=== PATIENT | female | born 1950 ===

== ENCOUNTER 2022-03-30 13:51 | Outpatient (CLI) | payer MEDICARE, MEDICAID, SELFPAY | END 2022-03-30 13:52 | disposition home or self-care (01) | PROVIDERS: PCP Physician Assistant Medical; Visit Provider Family Medicine | DX: M17.12 Unilateral primary osteoarthritis, left knee (principal); M25.562 Pain in left knee | CPT/HCPCS: 64454 ==

== ENCOUNTER 2022-04-12 07:41 | Outpatient (CLI) | payer MEDICARE, MEDICAID, SELFPAY | END 2022-04-12 07:42 | disposition home or self-care (01) | PROVIDERS: PCP Physician Assistant Medical; Visit Provider Internal Medicine Gastroenterology | DX: Z53.09 Procedure and treatment not carried out because of other contraindication (principal) ==

== ENCOUNTER 2023-04-21 08:55 | Outpatient (CLI) | payer MEDICARE, MEDICAID, SELFPAY ==
[2023-04-21 09:23] LABS: Hematocrit 42.3 % (33.0-51.0); Hemoglobin* 13.6 gm/dL (12.0-16.0); Mean Corpuscular HGB Conc 32 gm/dL (32-36); Mean Corpuscular Hemoglobin 30 pg (26-34); Mean Corpuscular Volume 92 fL (80-100); Platelet Count* 259 K/uL (140-440); Red Blood Count 4.59 m/uL (4.00-5.20); White Blood Count* 9.71 K/uL (4.50-11.00)
[2023-04-21 09:24] LABS: Slide Review Reflex No
[2023-04-21 10:33] LABS: Cholesterol* 245 mg/dL (90-199)
[2023-04-21 10:34] LABS: HDL Cholesterol* 94 mg/dL (>=50); LDL Cholesterol Calculated 131 mg/dL (<100); Triglycerides* 99 mg/dL (40-149)
[2023-04-21 12:46] LABS: Albumin* 4.5 g/dL (3.3-5.0); Chloride* 110 mmol/L (96-114); Sodium* 139 mmol/L (135-149)
[2023-04-21 12:47] LABS: Potassium* 4.4 mmol/L (3.6-5.1)
[2023-04-21 12:49] LABS: Alanine Aminotransferase* 18 U/L (4-35); Alkaline Phosphatase* 60 U/L (40-150); Aspartate Amino Transferase* 21 U/L (12-35); Bilirubin Total* 0.2 mg/dL (0.1-1.5); Blood Urea Nitrogen* 16 mg/dL (7-30); Carbon Dioxide* 16 mmol/L (20-32); Creatinine* 0.9 mg/dL (0.5-1.5); Estimated Glomerular Filt Rate 67 ml/min; Total Protein* 7.3 g/dL (6.0-8.3)
[2023-04-21 12:50] LABS: Glucose* 92 mg/dL (60-115)
== END 2023-04-21 08:56 | disposition home or self-care (01) ==
PROVIDERS: PCP Physician Assistant Medical; Visit Provider Family Medicine
DX: Z00.00 Encounter for general adult medical examination without abnormal findings; I10 Essential (primary) hypertension; F41.9 Anxiety disorder, unspecified; I63.9 Cerebral infarction, unspecified
CPT/HCPCS: 80053; 80061; 84443; 85025; 85027

== ENCOUNTER 2023-05-19 09:07 | Outpatient (CLI) | payer MEDICARE, SELFPAY | END 2023-05-19 09:08 | disposition home or self-care (01) | LOC: NFLDREF 09:10 | PROVIDERS: PCP Family Medicine; Visit Provider Family Medicine | DX: I10 Essential (primary) hypertension (principal); E78.5 Hyperlipidemia, unspecified | CPT/HCPCS: 80053 ==

== ENCOUNTER 2023-09-25 13:12 | Emergency (ER) | payer MEDICARE, SELFPAY ==
[2023-09-25 13:25] VITALS: BP 167/85; PULSE 78; RESP 16; TEMP 36.7; O2SAT 97; BMI 25.8
[2023-09-25 14:19] LABS: Strep A DNA Probe* NOT DETECTED (Not Detectd)
[2023-09-25 14:22] LABS: PCR FLU A Negative PCR FLU A (Negative); PCR FLU B Negative PCR FLU B (Negative); PCR RSV Negative PCR RSV (Negative)
[2023-09-25 14:40] LABS: SARS PCR* Negative SARS-CoV-2 (Negative)
[2023-09-25 15:57] VITALS: BP 157/90; PULSE 77; RESP 18; O2SAT 97
--- NOTE | 2023-09-25 16:02 | ED_ITS ---
HPI - General Adult General Chief complaint: Sore Throat Stated complaint: Sore throat Time Seen by Provider: 09/25/23 16:02 History of Present Illness HPI narrative: Has had a sore throught for 2 days. Wants to be sure its not something contagious. Denies fever, cough, new shortness of breath (has COPD). Aches all over too. Has not taken any ibuprofen or tylenol 73-year-old woman presenting to the emergency department with concern of sore throat and left ear pain. She does smoke. Has had 2-3 days of increased left ear pain she thinks that maybe disease station to issue but would not describe herself as congested. She has taken a variety of supplements including vitamin- C and Echinacea and then also kratom. She has gargled few times with hydrogen peroxide. Has not been using her hearing aids in a while is has been obstructed with cerumen becomes apparent during exam. No fever. She is is worried that she might have COVID though. Related Data Home Medications Medication Instructions Recorded Confirmed quetiapine 50 mg tablet 50 mg PO .Bedtime 04/21/23 09/25/23 trazodone 50 mg tablet 50 mg PO .Bedtime 04/21/23 09/25/23 Previous Rx's Medication Instructions Recorded albuterol sulfate 90 mcg/actuation 2 inh inhalation Q6-8H PRN 05/19/23 aerosol inhaler shortness of breath or wheezing #8.5 grams amlodipine 5 mg tablet 5 mg PO DAILY #90 tabs 05/19/23 clopidogrel 75 mg tablet 75 mg PO DAILY #90 tabs 05/19/23 fluticasone propionate 110 1 inh inhalation BID #12 grams 05/19/23 mcg/actuation HFA aerosol inhaler ondansetron 4 mg disintegrating 4 mg PO BID PRN nausea and 05/19/23 tablet vomiting #14 tabs tiotropium bromide 18 mcg capsule 1 cap inhalation QDAY #90 05/19/23 with inhalation device (Spiriva inhalations with HandiHaler) Allergies Allergy/AdvReac Type Severity Reaction Status Date / Time No Known Drug Allergies Allergy Verified 09/25/23 13:24 Review of Systems Status of ROS: Reports: 6 or more systems reviewed and unremarkable except as noted in History and below [facility] Medical History Passive suicidal ideations ?R45.851 - Suicidal ideations (ICD-10) History of suicide attempt ?Z91.51 - Personal history of suicidal behavior (ICD-10) History of eating disorder ?Z86.59 - Personal history of other mental and behavioral disorders (ICD-10) Bipolar disorder ?F31.9 - Bipolar disorder, unspecified (ICD-10) Positive RINA (antinuclear antibody) ?R76.8 - Other specified abnormal immunological findings in serum (ICD-10) Pulmonary hypertension ?I27.20 - Pulmonary hypertension, unspecified (ICD-10) Mitral valve prolapse (2016) ?I34.1 - Nonrheumatic mitral (valve) prolapse (ICD-10) History of alcoholism ?F10.21 - Alcohol dependence, in remission (ICD-10) Lumbar back pain ?M54.50 - Low back pain, unspecified (ICD-10) Bipolar 2 disorder ?F31.81 - Bipolar II disorder (ICD-10) Cigarette smoker ?F17.210 - Nicotine dependence, cigarettes, uncomplicated (ICD-10) Anxiety ?F41.9 - Anxiety disorder, unspecified (ICD-10) Osteoarthritis (arthritis due to wear and tear of joints) ?M19.90 - Unspecified osteoarthritis, unspecified site (ICD-10) COPD (chronic obstructive pulmonary disease) ?J44.9 - Chronic obstructive pulmonary disease, unspecified (ICD-10) Hypertension, essential ?I10 - Essential (primary) hypertension (ICD-10) PTSD (post-traumatic stress disorder) ?F43.10 - Post-traumatic stress disorder, unspecified (ICD-10) Borderline personality disorder ?F60.3 - Borderline personality disorder (ICD-10) Pneumonia of both lower lobes (~2014) ?J18.9 - Pneumonia, unspecified organism (ICD-10) Surgical History History of knee problem ?Z87.39 - Personal history of other diseases of the musculoskeletal system and connective tissue (ICD-10) History of appendectomy (~1981) ?Z90.49 - Acquired absence of other specified parts of digestive tract (ICD- 10) History of hysterectomy (1984) ?Z90.710 - Acquired absence of both cervix and uterus (ICD-10) History of Achilles tendon repair (1982) ?Z98.890 - Other specified postprocedural states (ICD-10) History of laparoscopy (~1979) ?Z98.890 - Other specified postprocedural states (ICD-10) Family History Father Pacemaker Brother Pancreatic cancer, Onset Age: 63 Brother Lung cancer, Onset Age: 57 Sister Schizophrenia Autism Social History Narrative: 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, patient is estranged from him Smokes 15 cigarettes a day, history of 25 pack years Rare alcohol use No illegal drug use What is your current living situation?: I presently have a place to live Problems where you live: no known problems In the past 12 months, utilities in danger of being shut off: no In past 12 months, lack of transportation kept you from medical appts, meetings, work, or getting things needed for daily living: yes In the past 12 mos, have been you worried that your food would run out before you had money to buy more?: never true In the past 12 mos, the food you bought just didn't last and you didn't have money to buy more?: never true Smoking Status: Current some day smoker What tobacco products do you use: cigarettes Smoking packs per day: 0.5 Smoking cigarettes per day: 10.0 Do you use any of these nicotine containing products: None Second hand tobacco smoke exposure: No How often do you have a drink containing alcohol: never How often do you have six or more drinks on one occasion: Never AUDIT-C Alcohol total score: 0 Non-prescribed substance use: denies use Non-prescribed substance use details: edtom How often does anyone, including family, friends and others, physically hurt you : never How often does anyone, including family, friends and others, insult or talk down to you: sometimes How often does anyone, including family, friends and others, threaten you with harm: never How often does anyone, including family, friends and others, scream or curse at you: never Little interest or pleasure in doing things: nearly every day Feeling down, depressed, or hopeless: nearly every day service: No Exam Narrative: Exam Narrative: Very pleasant. There is the smell of cigarette smoke. Breathing easily. No stridor. Trachea midline. Heart is in regular rate and rhythm. Head is atraumatic. Movement of either pinna or tragus is not painful. There is not inflammation within the ear canal but small amount of cerumen in the left. TM otherwise looks unremarkable. Right TM is completely obscured by small amount of cerumen that I am able to clear with a little difficulty from the outer aspect of the canal. Quite sensitive. I do not see inflammatory changes though to the TM here. Neither TMJ is tender. Dentition looks to be in good repair. No oral swelling. Oropharynx without erythema or exudate. Nicotine stained tongue. There is hyperemia it to the vasculature of the posterior oropharynx. No induration. No cervical lymphadenopathy. Neck is supple. Const: Vital Signs, click to edit/add: Vital Signs - 24 hr 09/25/23 13:25 09/25/23 15:57 Temperature 98.0 F Pulse Rate 77 Pulse Rate [Pulse Oximeter] 78 Respiratory Rate 16 18 Blood Pressure 157/90 H Blood Pressure [Ri ght Upper Arm] 167/85 H Pulse Oximetry 97 97 Oxygen Delivery Me thod Room Air Documenting provider has reviewed patient's vital signs: yes Course Vital Signs Vital signs: Initial Vital Signs Temperature 98.0 F 09/25/23 13:25 Temperature Source Temporal Artery Scan 09/25/23 13:25 Pulse Rate 78 09/25/23 13:25 Pulse Rhythm Regular 09/25/23 13:25 Pulse Strength 3+ Normal 09/25/23 13:25 Respiratory Rate 16 09/25/23 13:25 Blood Pressure 167/85 H 09/25/23 13:25 Blood Pressure Mean 112 H 09/25/23 13:25 Blood Pressure Position Sitting 09/25/23 13:25 Pulse Oximetry 97 09/25/23 13:25 Oxygen Delivery Method Room Air 09/25/23 13:25 Vital Signs Temperature 98.0 F 09/25/23 13:25 Pulse Rate 78 09/25/23 13:25 Respiratory Rate 16 09/25/23 13:25 Blood Pressure 167/85 H 09/25/23 13:25 Pulse Oximetry 97 09/25/23 13:25 Oxygen Delivery Method Room Air 09/25/23 13:25 Temperature 98.0 F 09/25/23 13:25 Pulse Rate 77 09/25/23 15:57 Respiratory Rate 18 09/25/23 15:57 Blood Pressure 157/90 H 09/25/23 15:57 Pulse Oximetry 97 09/25/23 15:57 Oxygen Delivery Method Room Air 09/25/23 13:25 Medical Decision Making MDM Narrative Medical decision making narrative: Given generalized symptoms might represent viral process. Per concerns can also screen for strep. Would imagine that cigarette smoking would irritate this. Discussed. Will screen for COVID influenza at least given community prevalence. Does not seem to be a bacterial pharyngitis. No other indication of dysphagia. I wonder some of the medications that she is using as well including hydrogen peroxide gargle, which she says is not frequent, might be contributing to throat irritation. No asymmetry or finding significant enough to make me think that there is an abscess or hematoma. Does have a history on review of record of positive RINA. Not clear that this is flaring. Triple swab and strep is negative. See patient discharge plan Medical Records Medical records reviewed: Yes I reviewed the patient's medical records Lab Data Lab results reviewed: Yes I reviewed the patient's lab results Labs: Lab Results 09/25/23 Range/Units Unknown SARS-CoV-2 (PCR) Negative SARS-CoV-2 (Negative) Influenza Type A (PCR) Negative PCR FLU A (Negative) Influenza Type B (PCR) Negative PCR FLU B (Negative) RSV (PCR) Negative PCR RSV (Negative) Group A Strep DNA NOT DETECTED (Not Detectd) Discharge Plan Discharge Clinical Impression: Cerumen impaction, Otalgia, Pharyngitis Patient Disposition: Home, Self-Care Condition: Stable Additional Instructions: I would use caution with kratom. Avoid regular use of hydrogen peroxide gargling. For your sore throat you might consider anesthetic throat lozenges or sprays like Sucrets or Chloraseptic. The Debrox you have might be helpful to clear out the small residual cerumen in your ear canals but not really necessary at the moment. Given your persistent discomfort and the fact that you smoke (and I do know you're trying to quit), I do think it would be a good idea to have ear nose and throat have a good look to see if we might be missing something. Dr. Anderosn sees patients locally. Temporarily you might try ibuprofen or of course acetaminophen for pain. Can take naproxen as an alternative to ibuprofen. If you're feeling like your eustachian tubes need clearing, pseudoephedrine can be an effective decongestant to open up your eustachian tubes. Prescriptions: No Action quetiapine 50 mg tablet 50 mg PO .Bedtime trazodone 50 mg tablet 50 mg PO .Bedtime amlodipine 5 mg tablet 5 mg PO DAILY Qty: 90 4RF clopidogrel 75 mg tablet 75 mg PO DAILY Qty: 90 4RF fluticasone propionate 110 mcg/actuation HFA aerosol inhaler 1 inh inhalation BID Qty: 12 12RF Spiriva with HandiHaler 18 mcg capsule, w/inhalation device 1 cap inhalation QDAY Qty: 90 4RF Rx Instructions: puncture 1 cap using device; one dose = 2 inhalations albuterol sulfate 90 mcg/actuation HFA aerosol inhaler 2 inh inhalation Q6-8H PRN (Reason: shortness of breath or wheezing) Qty: 8.5 3RF ondansetron 4 mg tablet,disintegrating 4 mg PO BID PRN (Reason: nausea and vomiting) Qty: 14 0RF Follow Up/Referrals: Beth Lancaster MD [Primary Care Provider] - Stand Alone Forms: [facility] Info Instructions Procedures Ear Wax Removal Right Ear: Cerumenolytic Used: other Results: Re-examined: some cerumen remains (Very small amount) TM Examination: TM(s) intact, normal appearance Ear Canal Exam: other (Irritated, mildly inflamed) Patient Tolerated Procedure: other (Quite sensitive. Would have considered a little more removal. Got vast majority) Complications: no problems Technique: ear canal curetted
== END 2023-09-25 16:47 | disposition home or self-care (01) ==
PROVIDERS: Emergency Provider Family Medicine; PCP Family Medicine
DX: J02.9 Acute pharyngitis, unspecified (principal); H92.02 Otalgia, left ear; H61.21 Impacted cerumen, right ear
CPT/HCPCS: 87631; 87651; 99283; 99284

== ENCOUNTER 2024-01-04 08:54 | Emergency (ER) | payer MEDICARE, SELFPAY ==
[2024-01-04 09:04] VITALS: BP 140/92; PULSE 93; RESP 20; TEMP 36.2; O2SAT 98; BMI 25.0
--- NOTE | 2024-01-04 09:36 | ED_ITS ---
HPI - General Adult General Chief complaint: Unspecified Complaint, Adult Stated complaint: anxiety/insomnia Time Seen by Provider: 01/04/24 09:09 History of Present Illness HPI narrative: Patient is a very pleasant 73-year-old black female who has a complicated medical history including bipolar disorder, depression, posttraumatic stress disorder, borderline personality disorder. The patient reports over last couple days she has not slept much. She has been out of her trazodone and Seroquel for the last couple of weeks. She also is out of her albuterol inhaler. She does have Plavix that is an adequate supply. Other meds are an adequate supply at home. She transferred care to Dr. Irene recently and for some reason appointment was canceled today. She really feels she needs her medications restarted. She comes to the ED. She denies chest pain, breathing problem, fevers, chills or neurologic complaint. Related Data Home Medications Medication Instructions Recorded Confirmed quetiapine 50 mg tablet 50 mg PO .Bedtime 04/21/23 01/04/24 trazodone 50 mg tablet 50 mg PO .Bedtime 04/21/23 01/04/24 Previous Rx's Medication Instructions Recorded albuterol sulfate 90 mcg/actuation 2 inh inhalation Q6-8H PRN 05/19/23 aerosol inhaler shortness of breath or wheezing #8.5 grams amlodipine 5 mg tablet 5 mg PO DAILY #90 tabs 05/19/23 clopidogrel 75 mg tablet 75 mg PO DAILY #90 tabs 05/19/23 fluticasone propionate 110 1 inh inhalation BID #12 grams 05/19/23 mcg/actuation HFA aerosol inhaler ondansetron 4 mg disintegrating 4 mg PO BID PRN nausea and 05/19/23 tablet vomiting #14 tabs tiotropium bromide 18 mcg capsule 1 cap inhalation QDAY #90 05/19/23 with inhalation device (Spiriva inhalations with HandiHaler) albuterol sulfate 90 mcg/actuation 2 inh inhalation Q6H PRN #1 ea 01/04/24 breath activated powder inhaler,sensor quetiapine 50 mg tablet (Seroquel) 50 mg PO QHS #30 tabs 01/04/24 trazodone 50 mg tablet 50 mg PO QHS #30 tabs 01/04/24 Allergies Allergy/AdvReac Type Severity Reaction Status Date / Time No Known Drug Allergies Allergy Verified 09/25/23 13:24 Review of Systems Status of ROS: Reports: 6 or more systems reviewed and unremarkable except as noted in History and below [facility] History Passive suicidal ideations ?R45.851 - Suicidal ideations (ICD-10) History of suicide attempt ?Z91.51 - Personal history of suicidal behavior (ICD-10) History of eating disorder ?Z86.59 - Personal history of other mental and behavioral disorders (ICD-10) Bipolar disorder ?F31.9 - Bipolar disorder, unspecified (ICD-10) Positive RINA (antinuclear antibody) ?R76.8 - Other specified abnormal immunological findings in serum (ICD-10) Pulmonary hypertension ?I27.20 - Pulmonary hypertension, unspecified (ICD-10) Mitral valve prolapse (2015) ?I34.1 - Nonrheumatic mitral (valve) prolapse (ICD-10) History of alcoholism ?F10.21 - Alcohol dependence, in remission (ICD-10) Lumbar back pain ?M54.50 - Low back pain, unspecified (ICD-10) Bipolar 2 disorder ?F31.81 - Bipolar II disorder (ICD-10) Cigarette smoker ?F17.210 - Nicotine dependence, cigarettes, uncomplicated (ICD-10) Anxiety ?F41.9 - Anxiety disorder, unspecified (ICD-10) Osteoarthritis (arthritis due to wear and tear of joints) ?M19.90 - Unspecified osteoarthritis, unspecified site (ICD-10) COPD (chronic obstructive pulmonary disease) ?J44.9 - Chronic obstructive pulmonary disease, unspecified (ICD-10) Hypertension, essential ?I10 - Essential (primary) hypertension (ICD-10) PTSD (post-traumatic stress disorder) ?F43.10 - Post-traumatic stress disorder, unspecified (ICD-10) Borderline personality disorder ?F60.3 - Borderline personality disorder (ICD-10) Pneumonia of both lower lobes (~2014) ?J18.9 - Pneumonia, unspecified organism (ICD-10) Surgical History History of knee problem ?Z87.39 - Personal history of other diseases of the musculoskeletal system and connective tissue (ICD-10) History of appendectomy (~1981) ?Z90.49 - Acquired absence of other specified parts of digestive tract (ICD- 10) History of hysterectomy (1984) ?Z90.710 - Acquired absence of both cervix and uterus (ICD-10) History of Achilles tendon repair (1982) ?Z98.890 - Other specified postprocedural states (ICD-10) History of laparoscopy (~1979) ?Z98.890 - Other specified postprocedural states (ICD-10) Family History Father Pacemaker Brother Pancreatic cancer, Onset Age: 63 Brother Lung cancer, Onset Age: 57 Sister Schizophrenia Autism Social History Narrative: 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, 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, 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 [facility], patient is estranged from him Smokes 15 cigarettes a day, history of 25 pack years Rare alcohol use No illegal drug use What is your current living situation?: I presently have a place to live Problems where you live: no known problems In the past 12 months, utilities in danger of being shut off: no In past 12 months, lack of transportation kept you from medical appts, meetings, work, or getting things needed for daily living: yes In the past 12 mos, have been you worried that your food would run out before you had money to buy more?: never true In the past 12 mos, the food you bought just didn't last and you didn't have money to buy more?: never true Smoking Status: Current some day smoker What tobacco products do you use: cigarettes Smoking packs per day: 0.5 Smoking cigarettes per day: 10.0 Do you use any of these nicotine containing products: None Second hand tobacco smoke exposure: No How often do you have a drink containing alcohol: never How often do you have six or more drinks on one occasion: Never AUDIT-C Alcohol total score: 0 Non-prescribed substance use: denies use 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 How often does anyone, including family, friends and others, physically hurt you : never How often does anyone, including family, friends and others, insult or talk down to you: sometimes How often does anyone, including family, friends and others, threaten you with harm: never How often does anyone, including family, friends and others, scream or curse at you: never Little interest or pleasure in doing things: nearly every day Feeling down, depressed, or hopeless: nearly every day service: No Exam Narrative: Exam Narrative: Objective: Patient's vital signs look largely unremarkable and within normal limits She is alert oriented no distress, very cognitively intact and sharp thinking Neurologically moves all 4s, no complaint of any discomfort or pain. No complaint of injury. Const: Vital Signs, click to edit/add: Vital Signs - 24 hr 01/04/24 09:04 Temperature 97.2 F L Pulse Rate [Pulse Oximeter] 93 Respiratory Rate 20 Blood Pressure [Ri ght Upper Arm] 140/92 H Pulse Oximetry 98 Oxygen Delivery Me thod Room Air Course Vital Signs Vital signs: Initial Vital Signs Temperature 97.2 F L 01/04/24 09:04 Temperature Source Temporal Artery Scan 01/04/24 09:04 Pulse Rate 93 01/04/24 09:04 Respiratory Rate 20 01/04/24 09:04 Blood Pressure 140/92 H 01/04/24 09:04 Blood Pressure Mean 108 H 01/04/24 09:04 Blood Pressure Position Supine 01/04/24 09:04 Pulse Oximetry 98 01/04/24 09:04 Oxygen Delivery Method Room Air 01/04/24 09:04 Vital Signs Temperature 97.2 F L 01/04/24 09:04 Pulse Rate 93 01/04/24 09:04 Respiratory Rate 20 01/04/24 09:04 Blood Pressure 140/92 H 01/04/24 09:04 Pulse Oximetry 98 01/04/24 09:04 Oxygen Delivery Method Room Air 01/04/24 09:04 Temperature 97.2 F L 01/04/24 09:04 Pulse Rate 93 01/04/24 09:04 Respiratory Rate 20 01/04/24 09:04 Blood Pressure 140/92 H 01/04/24 09:04 Pulse Oximetry 98 01/04/24 09:04 Oxygen Delivery Method Room Air 01/04/24 09:04 Medications Administered Medications: Discontinued Medications Generic Name Dose Route Start Last Admin Trade Name Freq PRN Reason Stop Dose Admin Quetiapine Fumarate 50 mg 01/04/24 09:30 01/04/24 09:46 Quetiapine 25 Mg Tablet PO 01/04/24 09:31 50 mg ONCE ONE Administration Medical Decision Making MDM Narrative Medical decision making narrative: 73-year-old female with multiple medical issues who really needs to is restarted on her medications, she has been troubled with bipolar disorder and she also has significant insomnia the last couple of days. She feels if she starts under circ: Trazodone again show be in good condition. I think it be reasonable to give her the Seroquel now so she can rest today she can start her usual medications tonight I would just do the trazodone tonight and then start Seroquel and trazodone as she had been doing tomorrow. She can continue her other home medications. Will refill her albuterol inhaler as well. Given the difficulty people are having a getting in promptly to appointments will give her a short supply of both of these medications but enough to get her to her next appointment. She was very appreciative of this and agrees to follow up as needed. She does have a ride home today. Discharge Plan Discharge Clinical Impression: Bipolar 2 disorder, PTSD (post-traumatic stress disorder), Anxiety Patient Disposition: Home w/ Parent or Adult Condition: Stable Additional Instructions: We refilled your Seroquel and trazodone, as well as your inhaler. He can pick t hese up at the pharmacy. Recommend make it a follow-up appoint with Dr. Her Pang at your convenience. Return to the emergency department as needed Activity Level: Light activity Discharge Diet: Regular Prescriptions: New quetiapine [Seroquel] 50 mg tablet 50 mg PO QHS Qty: 30 3RF trazodone 50 mg tablet 50 mg PO QHS Qty: 30 3RF albuterol sulfate 90 mcg/actuation aero powdr breath act w/sensor 2 inh inhalation Q6H PRNQty: 1 0RF No Action quetiapine 50 mg tablet 50 mg PO .Bedtime trazodone 50 mg tablet 50 mg PO .Bedtime amlodipine 5 mg tablet 5 mg PO DAILY Qty: 90 4RF clopidogrel 75 mg tablet 75 mg PO DAILY Qty: 90 4RF fluticasone propionate 110 mcg/actuation HFA aerosol inhaler 1 inh inhalation BID Qty: 12 12RF Spiriva with HandiHaler 18 mcg capsule, w/inhalation device 1 cap inhalation QDAY Qty: 90 4RF Rx Instructions: puncture 1 cap using device; one dose = 2 inhalations albuterol sulfate 90 mcg/actuation HFA aerosol inhaler 2 inh inhalation Q6-8H PRN (Reason: shortness of breath or wheezing) Qty: 8.5 3RF ondansetron 4 mg tablet,disintegrating 4 mg PO BID PRN (Reason: nausea and vomiting) Qty: 14 0RF Follow Up/Referrals: Beth Lancaster MD [Primary Care Provider] - Stand Alone Forms: [employer] Info Instructions
[2024-01-04] MEDS: QUETIAPINE 25 MG TABLET 50 MG PO (09:46)
== END 2024-01-04 09:48 | disposition home or self-care (01) ==
LOC: ED 09:37
PROVIDERS: Emergency Provider Family Medicine; PCP Family Medicine
DX: F31.81 Bipolar II disorder (principal); F43.10 Post-traumatic stress disorder, unspecified; F41.9 Anxiety disorder, unspecified
CPT/HCPCS: 99283; 99284; A9270

== ENCOUNTER 2024-01-25 08:52 | Emergency (ER) | payer MEDICARE, SELFPAY ==
[2024-01-25 08:57] VITALS: BP 134/76; PULSE 76; RESP 18; TEMP 36.6; O2SAT 98; BMI 23.9
--- NOTE | 2024-01-25 09:16 | ED.DENTAL ---
HPI - Dental/Oral General Chief complaint: Dental/Oral/Mouth Injury/Pain Stated complaint: tooth pain Time Seen by Provider: 01/25/24 09:05 History of Present Illness HPI Narrative: This 73-year-old female comes in because of left upper dental pain that radiates to her left ear. She states that she had some pain about 2 or 3 weeks ago for few days and this resolved. It came back again a 2nd time and now the she is here for 3rd episode of this pain which is worse than the other previous episodes. She has not been to a dentist. She arrives here with normal vital signs. She also states that she has run out of her Seroquel. She just has a few tablets of trazodone left. She was seen here 21 days ago and was out of these same medicines. She did received prescription for 30 of each but states that the Seroquel she takes twice a day. She has not yet arranged an appointment with her primary physician. Apparently she had 1 3 weeks ago and it was canceled and that prompted her visit to the emergency department then. Related Data Home Medications Medication Instructions Recorded Confirmed quetiapine 50 mg tablet 50 mg PO .Bedtime 04/21/23 01/25/24 trazodone 50 mg tablet 50 mg PO .Bedtime 04/21/23 01/25/24 Previous Rx's Medication Instructions Recorded albuterol sulfate 90 mcg/actuation 2 inh inhalation Q6-8H PRN 05/19/23 aerosol inhaler shortness of breath or wheezing #8.5 grams amlodipine 5 mg tablet 5 mg PO DAILY #90 tabs 05/19/23 clopidogrel 75 mg tablet 75 mg PO DAILY #90 tabs 05/19/23 fluticasone propionate 110 1 inh inhalation BID #12 grams 05/19/23 mcg/actuation HFA aerosol inhaler ondansetron 4 mg disintegrating 4 mg PO BID PRN nausea and 05/19/23 tablet vomiting #14 tabs tiotropium bromide 18 mcg capsule 1 cap inhalation QDAY #90 05/19/23 with inhalation device (Spiriva inhalations with HandiHaler) albuterol sulfate 90 mcg/actuation 2 inh inhalation Q6H PRN #1 ea 01/04/24 breath activated powder inhaler,sensor quetiapine 50 mg tablet (Seroquel) 50 mg PO QHS #30 tabs 01/04/24 trazodone 50 mg tablet 50 mg PO QHS #30 tabs 01/04/24 ketorolac 10 mg tablet 10 mg PO TID 5 days #15 tabs 01/25/24 quetiapine 50 mg tablet (Seroquel) 50 mg PO BID #30 tabs 01/25/24 trazodone 50 mg tablet 50 mg PO QHS #15 tabs 01/25/24 Allergies Allergy/AdvReac Type Severity Reaction Status Date / Time No Known Drug Allergies Allergy Verified 09/25/23 13:24 Review of Systems Status of ROS: Reports: 10 or more systems reviewed and unremarkable except as noted in History and below Narrative: Constitutional: No fevers, no weight gain or loss. Eyes: No discharge. No vision changes. HENT: No congestion, no sore throat. Left upper row of dental pain radiating to her left ear. Cardiovascular: No chest pain, no palpitations. Respiratory: No shortness of breath, no wheezes, no cough. Gastrointestinal: No abdominal pain, no vomiting, no diarrhea. Genitourinary: No dysuria, no hematuria. Musculoskeletal: Normal range of motion. Skin: No rashes, no pruritis. Neurological: No dizziness, weakness, sensory change, speech change. Endo/Heme/Allergies: No bruising or bleeding. No polydipsia. Pysch: no suicidality, no anxiety. She reports some insomnia. All other systems reviewed and are negative. [facility] Medical History Passive suicidal ideations ?R45.851 - Suicidal ideations (ICD-10) History of suicide attempt ?Z91.51 - Personal history of suicidal behavior (ICD-10) History of eating disorder ?Z86.59 - Personal history of other mental and behavioral disorders (ICD-10) Bipolar disorder ?F31.9 - Bipolar disorder, unspecified (ICD-10) Positive RINA (antinuclear antibody) ?R76.8 - Other specified abnormal immunological findings in serum (ICD-10) Pulmonary hypertension ?I27.20 - Pulmonary hypertension, unspecified (ICD-10) Mitral valve prolapse (2016) ?I34.1 - Nonrheumatic mitral (valve) prolapse (ICD-10) History of alcoholism ?F10.21 - Alcohol dependence, in remission (ICD-10) Lumbar back pain ?M54.50 - Low back pain, unspecified (ICD-10) Bipolar 2 disorder ?F31.81 - Bipolar II disorder (ICD-10) Cigarette smoker ?F17.210 - Nicotine dependence, cigarettes, uncomplicated (ICD-10) Anxiety ?F41.9 - Anxiety disorder, unspecified (ICD-10) Osteoarthritis (arthritis due to wear and tear of joints) ?M19.90 - Unspecified osteoarthritis, unspecified site (ICD-10) COPD (chronic obstructive pulmonary disease) ?J44.9 - Chronic obstructive pulmonary disease, unspecified (ICD-10) Hypertension, essential ?I10 - Essential (primary) hypertension (ICD-10) PTSD (post-traumatic stress disorder) ?F43.10 - Post-traumatic stress disorder, unspecified (ICD-10) Borderline personality disorder ?F60.3 - Borderline personality disorder (ICD-10) Pneumonia of both lower lobes (~2014) ?J18.9 - Pneumonia, unspecified organism (ICD-10) Surgical History History of knee problem ?Z87.39 - Personal history of other diseases of the musculoskeletal system and connective tissue (ICD-10) History of appendectomy (~1981) ?Z90.49 - Acquired absence of other specified parts of digestive tract (ICD-10) History of hysterectomy (1984) ?Z90.710 - Acquired absence of both cervix and uterus (ICD-10) History of Achilles tendon repair (1982) ?Z98.890 - Other specified postprocedural states (ICD-10) History of laparoscopy (~1979) ?Z98.890 - Other specified postprocedural states (ICD-10) Family History Father Pacemaker Brother Pancreatic cancer, Onset Age: 63 Brother Lung cancer, Onset Age: 57 Sister Schizophrenia Autism Social History Narrative: 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, patient is estranged from him Smokes 15 cigarettes a day, history of 25 pack years Rare alcohol use No illegal drug use What is your current living situation?: I presently have a place to live Problems where you live: no known problems In the past 12 months, utilities in danger of being shut off: no In past 12 months, lack of transportation kept you from medical appts, meetings, work, or getting things needed for daily living: yes In the past 12 mos, have been you worried that your food would run out before you had money to buy more?: never true In the past 12 mos, the food you bought just didn't last and you didn't have money to buy more?: never true Smoking Status: Current some day smoker What tobacco products do you use: cigarettes Smoking packs per day: 0.5 Smoking cigarettes per day: 10.0 Do you use any of these nicotine containing products: None Second hand tobacco smoke exposure: No How often do you have a drink containing alcohol: never How often do you have six or more drinks on one occasion: Never AUDIT-C Alcohol total score: 0 Non-prescribed substance use: denies use Non-prescribed substance use details: kratom How often does anyone, including family, friends and others, physically hurt you: never How often does anyone, including family, friends and others, insult or talk down to you: sometimes How often does anyone, including family, friends and others, threaten you with harm: never How often does anyone, including family, friends and others, scream or curse at you: never Little interest or pleasure in doing things: nearly every day Feeling down, depressed, or hopeless: nearly every day service: No Exam Narrative: Exam Narrative: Constitutional: Well-developed, well-nourished, no acute distress. HEENT: Normocephalic, atraumatic. She has a partial plate in the left upper row of teeth. No sign of abscess or dental injury. Tympanic membrane appears normal. Neck: Normal range of motion. Nontender. Supple. Heart: Regular. No murmurs. Normal rate. Intact distal pulses. Lungs: Clear to auscultation. No chest discomfort. No wheezes, rhonchi, or rales. Abdomen: Normal bowel sounds. Nontender. No rebound tenderness. Genitalia: Deferred. Back: No midline tenderness. Normal range of motion. Extremities: Normal range of motion. No injury. Skin: Intact. No rash. Warm. No erythema or pallor. Neurologic: No altered sensation. No weakness. Alert and oriented. Psychiatric: No suicidality. No anxiety or depression. No insomnia. Nursing notes and vitals signs are reviewed. Const: Vital Signs, click to edit/add: Vital Signs - 24 hr 01/25/24 08:57 Temperature 97.9 F Pulse Rate [Pulse Oximeter] 76 Respiratory Rate 18 Blood Pressure [Ri ght Upper Arm] 134/76 Pulse Oximetry 98 Oxygen Delivery Me thod Room Air Course Vital Signs Vital signs: Initial Vital Signs Temperature 97.9 F 01/25/24 08:57 Temperature Source Temporal Artery Scan 01/25/24 08:57 Pulse Rate 76 01/25/24 08:57 Respiratory Rate 18 01/25/24 08:57 Blood Pressure 134/76 01/25/24 08:57 Blood Pressure Mean 95 01/25/24 08:57 Blood Pressure Position Supine 01/25/24 08:57 Pulse Oximetry 98 01/25/24 08:57 Oxygen Delivery Method Room Air 01/25/24 08:57 Vital Signs Temperature 97.9 F 01/25/24 08:57 Pulse Rate 76 01/25/24 08:57 Respiratory Rate 18 01/25/24 08:57 Blood Pressure 134/76 01/25/24 08:57 Pulse Oximetry 98 01/25/24 08:57 Oxygen Delivery Method Room Air 01/25/24 08:57 Temperature 97.9 F 01/25/24 08:57 Pulse Rate 76 01/25/24 08:57 Respiratory Rate 18 01/25/24 08:57 Blood Pressure 134/76 01/25/24 08:57 Pulse Oximetry 98 01/25/24 08:57 Oxygen Delivery Method Room Air 01/25/24 08:57 MDM - Dental/Oral MDM Narrative Medical decision making narrative: This patient comes in with dental pain and is encouraged to make an appointment with her dentist. I did offer a nerve block which she declined. She did receive a prescription for Toradol. I also did refill her trazodone and Seroquel and underscored the importance of having her primary physician manage these refills. Discharge Plan Discharge Clinical Impression: Pain, dental Patient Disposition: Home, Self-Care Condition: Stable Additional Instructions: Take medication as prescribed. Follow-up with dentist as soon as possible. Follow-up with primary physician for ongoing refills and management of regular medications. Prescriptions: New trazodone 50 mg tablet 50 mg PO QHS Qty: 15 2RF ketorolac 10 mg tablet 10 mg PO TID 5 Days Qty: 15 0RF quetiapine [Seroquel] 50 mg tablet 50 mg PO BID Qty: 30 2RF No Action quetiapine 50 mg tablet 50 mg PO .Bedtime trazodone 50 mg tablet 50 mg PO .Bedtime amlodipine 5 mg tablet 5 mg PO DAILY Qty: 90 4RF clopidogrel 75 mg tablet 75 mg PO DAILY Qty: 90 4RF fluticasone propionate 110 mcg/actuation HFA aerosol inhaler 1 inh inhalation BID Qty: 12 12RF Spiriva with HandiHaler 18 mcg capsule, w/inhalation device 1 cap inhalation QDAY Qty: 90 4RF Rx Instructions: puncture 1 cap using device; one dose = 2 inhalations albuterol sulfate 90 mcg/actuation HFA aerosol inhaler 2 inh inhalation Q6-8H PRN (Reason: shortness of breath or wheezing) Qty: 8.5 3RF ondansetron 4 mg tablet,disintegrating 4 mg PO BID PRN (Reason: nausea and vomiting) Qty: 14 0RF quetiapine [Seroquel] 50 mg tablet 50 mg PO QHS Qty: 30 3RF trazodone 50 mg tablet 50 mg PO QHS Qty: 30 3RF albuterol sulfate 90 mcg/actuation aero powdr breath act w/sensor 2 inh inhalation Q6H PRNQty: 1 0RF Follow Up/Referrals: Beth Lancaster MD [Primary Care Provider] - Stand Alone Forms: [facility] Info Instructions
== END 2024-01-25 09:29 | disposition home or self-care (01) ==
LOC: ED 09:26
PROVIDERS: Emergency Provider Emergency Medicine Emergency Medical Services; PCP Family Medicine
DX: K08.89 Other specified disorders of teeth and supporting structures (principal)
CPT/HCPCS: 99283; 99284

== ENCOUNTER 2024-06-18 10:57 | Outpatient (CLI) | payer MEDICARE, SELFPAY ==
--- OUTSIDE RECORDS SUMMARY | 2024-06-18 11:03 | XMS_ITS | Clinical Summary ---
Author Organization [facility] Address [place], [place] [address] Care Team Providers Care Heel Trimmer Name Role Phone Akosua Rivas DO Primary Care Provider Allergies No known active allergies Medications Medication Sig Dispensed Refills Start Date End Date Status aspirin chewable 81 mg chewable tablet Take 81 mg by mouth once daily. 09/11/2020 Active albuterol HFA (PRO-AIR; VENTOLIN; PROVENTIL) 90 mcg/actuation inhalerIndications:Ob structive emphysema (HC) Inhale 2 Puffs by mouth 4 times daily if needed (shortness of breath/wheezing) . 1 Each 5 08/19/2021 Active apktonn-mkob-kidfb-or eg-capryl 100 mg-150 mg- 50 mg-150 mg cap Take by mouth. 0 01/29/2022 Active amLODIPine (NORVASC) 5 mg tabletIndications:HTN (hypertension) Take 1 Tablet (5 mg) by mouth once daily. 90 Tablet 3 08/27/2022 Active clopidogreL (PLAVIX) 75 mg tabletIndications:Cer ebrovascular accident (CVA), unspecified mechanism (HC) Take 1 Tablet (75 mg) by mouth once daily. 90 Tablet 3 08/27/2022 Active fluticasone propionate (Flovent Diskus) 250 mcg/actuation inhalerIndications:Ob structive emphysema (HC) Inhale 1 Puff by mouth two times daily. 60 Each 03/04/2023 Active traZODone (DESYREL) 50 mg tabletIndications:Ins omnia, unspecified type TAKE 1 TO 2 TABLETS BY MOUTH AT BEDTIME FOR SLEEP 180 Tablet 09/13/2023 Active QUEtiapine (SEROQUEL) 50 mg tabletIndications:Sev ere depression (HC),PTSD (post-traumatic stress disorder),Other bipolar disorder (HC),Dissociative episodes TAKE TWO TABLETS (100 MG) BY MOUTH AT BEDTIME 60 Tablet 11/21/2023 Active Active Problems Problem Noted Date Diagnosed Date Obstructive emphysema 11/22/2022 Pulmonary hypertension 06/19/2021 Dissociative episodes 12/21/2016 Tortuous aorta (HC). Echo ordered 06/2016. 2015 Anterolisthesis. C6 on C7. 07/07/2016 Hx of tympanostomy tubes 10/24/2015 Mitral valve prolapse 10/24/2015 Severe depression 06/20/2012 Anxiety state, unspecified 02/02/2010 Chronic knee pain 10/13/2009 PTSD (post-traumatic stress disorder) 09/01/2009 Other bipolar disorders Overview (03/10/2007): Bipolar affective disorder On SSI Osteoarthrosis, unspecified whether generalized or localized, lower leg Overview (03/10/2007): Chondromalacia Lumbago Overview (03/10/2007): Chronic SOB (shortness of breath) Immunizations Name Administration Dates Next Due COVID-19 vaccine ([employer]-Bio NTExitround 30mcg/0.3mL) 12YO+ JEAN PIERRE-SUCROSE PF, MDV 01/29/2022 COVID-19 vaccine ([employer]-BioNTExitround 30mcg/0.3mL) P F, MDV 08/19/2021 Td (Age >=7 Years) 11/03/2002 Family History Medical History Relation Name Comments Good Health Brother 3 1 Cancer-pancreatic Brother 4 2015 Heart Disease Father 89 Anesthesia Malignant Hyperthermia Other Anesthesia Problem Other Other Sister 2 schizophrenic, autistic Relation Name Status Comments Brother 1 pancreatic canc er Brother 2 Alive Brother 3 Brother 4 Father Mother Other Sister 1 Alive Sister 2 Social History Tobacco Use Types Packs/Day Years Used Date Smoking Tobacco: Former Cigarettes 0.5 30 0 01/1989 - 01/2019 Smokeless Tobacco: Never Tobacco Cessation:Counseling Given: Yes Alcohol Use Standard Drinks/Week Comments No 0 (1 standard drink = 0.6 oz pure alcohol) sporatic /ceremonial, emotional smoking PHQ-2 Answer Date Recorded PHQ-2 TOTAL SCORE 6 11/22/2022 Social Connections Answer Date Recorded Frequency of Communication with Friends and Fami ly Not on file 01/31/2023 Financial Resource Strain Answer Date R ecorded Difficulty of Paying Living Expenses 3 01/29/2022 Difficulty of Paying Living Expenses Not on file 01/29/2022 Food Insecurity Answer Date Recorded Worried About Running Out of Food in the Last Ye ar 1 01/29/2022 Transportation Needs Answer Date Record ed Lack of Transportation (Medical) 1 01/29/2022 Housing Stability Answer Date Recorded Unable to Pay for Housing in the Last Year 1 01/29/2022 Sex and Gender Information Value Date Recorded Sex Assigned at Not on file Gender Identity Not on file Sexual Orientation Not on file Obstetrics History Para Term AB IAB SAB Ectopic Multiple Livin g Live Births 3 1 Date Outcome GA Total Labor Labor//3rd Weight Sex Type Anes PTL Anju A1 A5 Name Clin Last Filed Vital Signs Vital Sign Reading Time Taken Comments Blood Pressure 145/84 11/22/2022 7:54 AM BURN OUT SCARFING OPERATOR Pulse 78 11/22/2022 7:54 AM BURN OUT SCARFING OPERATOR Temperature 37 ??C (98.6 ??F) 04/02/2022 8:19 AM CDT Respiratory Rate 18 06/19/2019 8:34 AM CDT Oxygen Saturation 99% 11/22/2022 7:54 AM BURN OUT SCARFING OPERATOR Inhaled Oxygen Concentration - - Weight 84.1 kg (185 lb 6.4 oz) 11/22/2022 7:54 A M BURN OUT SCARFING OPERATOR Height 167.6 cm (5' 6) 11/22/2022 7:54 AM BURN OUT SCARFING OPERATOR Body Mass Index 29.92 11/22/2022 7:54 AM BURN OUT SCARFING OPERATOR Plan of Treatment Health Maintenance Due Date Last Done Comments Pneumococcal series for age 65+ (1 of 2 - PCV) 1954 Tdap 1959 Zoster (shingles) series for age 50+ (1 of 2) 1998 RSV vaccine for adults or (1 - 1-dose 60+ series) 2008 Tetanus booster 11/03/2012 11/03/2002 DEXA/DXA scan for age 65+ 2013 Medicare Wellness for age 65+ 07/10/2021, 03/21/2019, 10/24/2015 Fecal testing non-DNA (FIT,FOBT,iFOBT) for age 45-75 2021 2020, 09/20/2017, 11/25/2015 BMI (ht and wt on same day) for age 18+ 11/22/2023 11/22/2022, 05/24/2022, 06/19/2021, Additional history exists Depression screening for age 12+ 11/22/2023 11/22/2022, 08/26/2021, 08/19/2021, Additional history exists COVID-19 vaccine series (2022- season) 2024 01/29/2022, 08/19/2021, 01/03/2021, Additional history exists Influenza for age 65+ 06/03/2024 Lipids for age 45-75 07/09/2025 07/09/2020, 03/21/2019, 10/24/2015, Additional history exists Hepatitis C screening for ag e 18-79 Completed 07/09/2020 Procedures Procedure Name Priority Date/Time Associated Diagnosis Comments OCCULT BLOOD IFOBT STOOL Routine 2020 7:05 AM BURN OUT SCARFING OPERATOR Screening for colorectal cancer ANTI HCV Routine 07/09/2020 10:28 AM CDT Encounter for hepatitis C screening test for low risk patient LIPID PANEL W REFLEX MEASURED LDL Routine 07/09/2020 10:28 AM CDT Screening cholesterol level from Last 3 Months or Most Recently Relevant to Health Maintenance Results * OCCULT BLOOD IFOBT STOOL (2020 7:05 AM BURN OUT SCARFING OPERATOR) STOOL BLOOD ,IFOBT Negative Negative 09/24/2020 10:34 AM BURN OUT SCARFING OPERATOR [facility] Stool STOOL SPECIMEN / Unknown Non-Blood / Unknown 2020 7:05 AM BURN OUT SCARFING OPERATOR 09/24/2020 10:15 AM BURN OUT SCARFING OPERATOR [facility] [address] [place] [address], [place] [phone] * (ABNORMAL) LIPID PANEL W REFLEX MEASURED LDL (07/09/2020 10:28 AM CDT) CHOLESTEROL,TOTAL 254(H) 100 - 199 mg/dL 07/09/2020 5:[address] [facility] TRIGLYCERIDES 117 <150 mg/dL 07/09/2020 5:[address] [facility] HDL CHOLESTEROL 95 >40 mg/dL 0 5:[address] [facility] NON-HDL CHOLESTEROL 159(H) <145 mg/dl 07/09/2020 5:[address] [facility] CHOL/HDL RATIO 2.67 <4.50 07/09/2020 5:[address] [facility] LDL CHOLESTEROL 136(H) <=130 mg/dL 07/09/2020 5:[address] [facility] PROVIDER ORDERED STATUS RANDOM 07/09/2020 5:[address] [facility] Blood BLOOD SPECIMEN / Unknown Venipuncture / Unknown 07/09/2020 10:28 AM CDT 07/09/2020 10:29 AM CDT [facility] [address] [place] [address], [place] * ANTI HCV (07/09/2020 10:28 AM CDT) HEPATITIS C ANTIBODY Non-React yajaira Non-React yajaira 07/09/2020 6:[address] [facility] Comment:Antibodies to HCV no t detected; does not exclude the possibility of exposure to HCV. Blood BLOOD SPECIMEN / Unknown Venipuncture / Unknown 07/09/2020 10:28 AM CDT 07/09/2020 10:29 AM CDT [facility] [address] [place] [address], from Last 3 Months or Most Recently Relevant to Health Maintenance Care Teams Heel Trimmer Relationship Specialty Start Date End Date Akosua Rivas DO [address] [place] [address] PCP - General Family Practice 11/30/22
== END 2024-06-18 10:58 | disposition home or self-care (01) ==
PROVIDERS: PCP Family Medicine; Visit Provider Registered Nurse
DX: R42 Dizziness and giddiness (principal); F31.9 Bipolar disorder, unspecified; G47.00 Insomnia, unspecified
CPT/HCPCS: 80053; 80061; 82306; 82607; 82728

== ENCOUNTER 2024-07-17 10:53 | Emergency (ER) | payer MEDICARE, SELFPAY ==
[2024-07-17] VITALS (14 sets, daily range): BP systolic 156–185; BP diastolic 95–102; PULSE 65–74; RESP 16; TEMP 36.2–36.4; O2SAT 94–100; BMI 23.4
[2024-07-17 12:10] LABS: Appearance Urine Clear (Clear); Bilirubin Urine Negative (Negative); Blood Urine Negative (Negative); Color Urine Yellow (Yellow); Glucose Urine Negative (Negative); Ketones Urine Negative (Negative); Leukocyte Esterase Urine Negative (Negative); Nitrite Urine Negative (Negative); Protein Urine Negative (Negative); Specific Gravity Urine 1.015 (1.000-1.030); Urobilinogen Urine 0.2 (0.2-1.0)
[2024-07-17 12:19] LABS: RBC Urine 0-2 (0-2); WBC Urine 0-2 (0-5)
--- NOTE | 2024-07-17 12:54 | CRLHL7_ITS ---
For Patients: As a result of the Century Cures Act, medical imaging exams and procedure reports are released immediately into your electronic medical record. You may view this report before your referring provider. If you have questions, please contact your health care provider. INDICATION: DIZZINESS, N/V X 3 MONTHS GETTING WORSE TECHNIQUE: CT of the head was performed without IV contrast. COMPARISON: Report 09/08/2020. FINDINGS: Parenchyma: No acute hemorrhage, infarction, or mass. Moderate scattered periventricular white matter hypoattenuation is nonspecific and is favored to represent chronic small vessel ischemic disease. Ventricles and extra-axial spaces: Appropriate for age. Visualized paranasal sinuses: Complete opacification of the left maxillary sinus with mild thickening of the surrounding guzman. Mastoid air cells: Clear. Bones: No focal abnormality. Additional comment: Bilateral lens surgery. IMPRESSION: 1. No acute intracranial abnormality. 2. Complete opacification of the left maxillary sinus with mild thickening of the surrounding guzman may represent chronic sinusitis. Please note that all CT scans at this facility use dose modulation, iterative reconstruction, and/or weight-based dosing when appropriate to reduce radiation dose to as low as reasonably achievable. Dictated by Deangelo Kimball MD @ 07/17/2024 1:30:14 PM (Electronically Signed)
--- NOTE | 2024-07-17 12:54 | ED.DIZZY ---
HPI - Dizziness General Chief Complaint: Dizziness/Vertigo Stated Complaint: Dizzy, shaking, nauseous Time Seen by Provider: 07/17/24 12:29 History of Present Illness HPI Narrative: This 73-year-old female was sent here from urgent care after she presented there with dizziness symptoms and felt shaky today. She states that she has been having vertigo type symptoms most days over the past 3 months. She states that the vertigo symptoms go away if she remains still but seem to recur her with any kind of movement. She does not report any neurologic deficits and does not have a headache. She did have a checkup with her primary physician about a week ago and labs were obtained with normal results according to the patient. She is not on any new medications. She does have history of anxiety and bipolar disorder and is taking psychotropic medicines as prescribed. She states that she had rather intense tremors earlier today such that it was difficult to ambulate and function. These symptoms are no longer present now. She states that she does not have a headache but feels like there is congestion in the frontal part of her head and as stated above she has vertigo symptoms with movement or activity. She does not report any hearing changes. Related Data Previous Rx's ?Medication ?Instructions ?Recorded albuterol sulfate 90 mcg/actuation 2 inh inhalation Q6H PRN #1 ea 01/04/24 breath activated powder inhaler,sensor fluticasone furoate 200 1 inh inhalation Q24H #30 ea 03/13/24 mcg/actuation blister powder for inhalation (Arnuity Ellipta) amlodipine 5 mg tablet 5 mg PO DAILY #90 tabs 03/15/24 clopidogrel 75 mg tablet 75 mg PO DAILY #90 tabs 03/15/24 tiotropium bromide 18 mcg capsule 1 cap inhalation QDAY #90 06/14/24 with inhalation device (Spiriva inhalations with HandiHaler) quetiapine 50 mg tablet (Seroquel) 50 mg PO BID #14 tabs 06/18/24 trazodone 50 mg tablet 50 mg PO QHS #14 tabs 06/18/24 amoxicillin 875 mg-potassium 1 tab PO BID #14 tabs 07/17/24 clavulanate 125 mg tablet methylprednisolone 4 mg tablets in See Rx Instructions PO .COMPLEX 07/17/24 a dose pack (Medrol (Wally)) #21 ea ondansetron HCl 4 mg tablet 4 mg PO Q6H #20 tabs 07/17/24 Allergies Allergy/AdvReac Type Severity Reaction Status Date / Time No Known Drug Allergies Allergy Verified 07/17/24 11:33 Review of Systems Status of ROS: Reports: 10 or more systems reviewed and unremarkable except as noted in History and below Narrative: Constitutional: No fevers, no weight gain or loss. Eyes: No discharge. No vision changes. HENT: No congestion, no sore throat, no ear pain. Cardiovascular: No chest pain, no palpitations. Respiratory: No shortness of breath, no wheezes, no cough. Gastrointestinal: No abdominal pain, no vomiting, no diarrhea. Genitourinary: No dysuria, no hematuria. Musculoskeletal: Normal range of motion. Skin: No rashes, no pruritis. Neurological: No weakness, sensory change, speech change. Vertigo symptoms as described above. Endo/Heme/Allergies: No bruising or bleeding. No polydipsia. Pysch: no suicidality, no insomnia. All other systems reviewed and are negative. [facility] Medical History (Updated 07/17/24 @ 14:07 by Jim Page MD) Passive suicidal ideations ?R45.851 - Suicidal ideations (ICD-10) History of suicide attempt ?Z91.51 - Personal history of suicidal behavior (ICD-10) History of eating disorder ?Z86.59 - Personal history of other mental and behavioral disorders (ICD-10) Bipolar disorder ?F31.9 - Bipolar disorder, unspecified (ICD-10) Positive RINA (antinuclear antibody) ?R76.8 - Other specified abnormal immunological findings in serum (ICD-10) Pulmonary hypertension ?I27.20 - Pulmonary hypertension, unspecified (ICD-10) Mitral valve prolapse (2016) ?I34.1 - Nonrheumatic mitral (valve) prolapse (ICD-10) History of alcoholism ?F10.21 - Alcohol dependence, in remission (ICD-10) Lumbar back pain ?M54.50 - Low back pain, unspecified (ICD-10) Bipolar 2 disorder ?F31.81 - Bipolar II disorder (ICD-10) Cigarette smoker ?F17.210 - Nicotine dependence, cigarettes, uncomplicated (ICD-10) Anxiety ?F41.9 - Anxiety disorder, unspecified (ICD-10) Osteoarthritis (arthritis due to wear and tear of joints) ?M19.90 - Unspecified osteoarthritis, unspecified site (ICD-10) COPD (chronic obstructive pulmonary disease) ?J44.9 - Chronic obstructive pulmonary disease, unspecified (ICD-10) Hypertension, essential ?I10 - Essential (primary) hypertension (ICD-10) PTSD (post-traumatic stress disorder) ?F43.10 - Post-traumatic stress disorder, unspecified (ICD-10) Borderline personality disorder ?F60.3 - Borderline personality disorder (ICD-10) Pneumonia of both lower lobes (~2014) ?J18.9 - Pneumonia, unspecified organism (ICD-10) Surgical History History of knee problem ?Z87.39 - Personal history of other diseases of the musculoskeletal system and connective tissue (ICD-10) History of appendectomy (~1981) ?Z90.49 - Acquired absence of other specified parts of digestive tract (ICD-10) History of hysterectomy (1984) ?Z90.710 - Acquired absence of both cervix and uterus (ICD-10) History of Achilles tendon repair (1982) ?Z98.890 - Other specified postprocedural states (ICD-10) History of laparoscopy (~1979) ?Z98.890 - Other specified postprocedural states (ICD-10) Family History Father Pacemaker Brother Pancreatic cancer, Onset Age: 63 Brother Lung cancer, Onset Age: 57 Sister Schizophrenia Autism Social History (Updated 06/28/24 @ 15:13 by Sonia Bennett ~ CTA) Narrative: 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, 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, 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 [facility], patient is estranged from him Smokes 15 cigarettes a day, history of 25 pack years Rare alcohol use No illegal drug use What is your current living situation?: I presently have a place to live Problems where you live: no known problems In the past 12 months, utilities in danger of being shut off: no In past 12 months, lack of transportation kept you from medical appts, meetings, work, or getting things needed for daily living: no In the past 12 mos, have been you worried that your food would run out before you had money to buy more?: never true In the past 12 mos, the food you bought just didn't last and you didn't have money to buy more?: never true Smoking Status: Current every day smoker What tobacco products do you use: cigarettes Smoking packs per day: 0.5 Smoking cigarettes per day: 10.0 Do you use any of these nicotine containing products: None Second hand tobacco smoke exposure: No How often do you have a drink containing alcohol: never How often do you have six or more drinks on one occasion: Never AUDIT-C Alcohol total score: 0 Non-prescribed substance use: denies use Non-prescribed substance use details: kratom How often does anyone, including family, friends and others, physically hurt you: never How often does anyone, including family, friends and others, insult or talk down to you: sometimes How often does anyone, including family, friends and others, threaten you with harm: never How often does anyone, including family, friends and others, scream or curse at you: rarely Little interest or pleasure in doing things: nearly every day Feeling down, depressed, or hopeless: nearly every day service: No Exam Narrative: Exam Narrative: Constitutional: Well-developed, well-nourished, no acute distress. HEENT: Normocephalic, atraumatic. Neck: Normal range of motion. Nontender. Supple. Heart: Regular. No murmurs. Normal rate. Intact distal pulses. Lungs: Clear to auscultation. No chest discomfort. No wheezes, rhonchi, or rales. Abdomen: Normal bowel sounds. Nontender. No rebound tenderness. Genitalia: Deferred. Back: No midline tenderness. Normal range of motion. Extremities: Normal range of motion. No injury. Skin: Intact. No rash. Warm. No erythema or pallor. Neurologic: No altered sensation. No weakness. Alert and oriented. No facial asymmetry. Tongue is midline. Xzjojo-lb-wfgq is normal. No pronator drift. [employer] strength is equal bilaterally. Able to raise each leg from the bed. Psychiatric: No suicidality. No anxiety or depression. No insomnia. Nursing notes and vitals signs are reviewed. Const: Vital Signs, click to edit/add: Vital Signs - 24 hr 07/17/24 11:35 07/17/24 12:10 07/17/24 12:12 Temperature 97.5 F L Pulse Rate 67 71 Pulse Rate [Pulse Oximeter] 72 Respiratory Rate 16 Blood Pressure 158/95 H Blood Pressure [Ri ght Upper Arm] 173/101 H Pulse Oximetry 97 94 96 Oxygen Delivery Me thod Room Air 07/17/24 12:13 07/17/24 12:15 07/17/24 12:30 Temperature Pulse Rate 70 71 67 Pulse Rate [Pulse Oximeter] Respiratory Rate Blood Pressure Blood Pressure [Ri ght Upper Arm] Pulse Oximetry 94 100 Oxygen Delivery Me thod 07/17/24 12:31 07/17/24 12:45 07/17/24 13:01 Temperature Pulse Rate 69 73 70 Pulse Rate [Pulse Oximeter] Respiratory Rate 16 16 Blood Pressure 156/95 H Blood Pressure [Ri ght Upper Arm] Pulse Oximetry 96 100 99 Oxygen Delivery Me thod 07/17/24 13:02 07/17/24 13:15 07/17/24 13:30 Temperature Pulse Rate 74 68 65 Pulse Rate [Pulse Oximeter] Respiratory Rate 16 Blood Pressure 172/101 H Blood Pressure [Ri ght Upper Arm] Pulse Oximetry 99 99 100 Oxygen Delivery Me thod 07/17/24 13:31 Temperature Pulse Rate 71 Pulse Rate [Pulse Oximeter] Respiratory Rate 16 Blood Pressure 185/102 H Blood Pressure [Ri ght Upper Arm] Pulse Oximetry 98 Oxygen Delivery Me thod Course Vital Signs Vital signs: Initial Vital Signs Temperature 97.5 F L 07/17/24 11:35 Temperature Source Temporal Artery Scan 07/17/24 11:35 Pulse Rate 72 07/17/24 11:35 Pulse Rhythm Regular 07/17/24 11:35 Pulse Strength 3+ Normal 07/17/24 11:35 Respiratory Rate 16 07/17/24 11:35 Blood Pressure 173/101 H 07/17/24 11:35 Blood Pressure Mean 125 H 07/17/24 11:35 Blood Pressure Position Sitting 07/17/24 11:35 Pulse Oximetry 97 07/17/24 11:35 Oxygen Delivery Method Room Air 07/17/24 11:35 Vital Signs Temperature 97.5 F L 07/17/24 11:35 Pulse Rate 72 07/17/24 11:35 Respiratory Rate 16 07/17/24 11:35 Blood Pressure 173/101 H 07/17/24 11:35 Pulse Oximetry 97 07/17/24 11:35 Oxygen Delivery Method Room Air 07/17/24 11:35 Temperature 97.5 F L 07/17/24 11:35 Pulse Rate 71 07/17/24 13:31 Respiratory Rate 16 07/17/24 13:31 Blood Pressure 185/102 H 07/17/24 13:31 Pulse Oximetry 98 07/17/24 13:31 Oxygen Delivery Method Room Air 07/17/24 11:35 Medications Administered Medications: Discontinued Medications Generic Name Dose Route Start Last Admin Trade Name Rashid PRN Reason Stop Dose Admin Meclizine HCl 25 mg 07/17/24 12:53 07/17/24 13:01 Meclizine Hcl 25 Mg Tablet PO 07/17/24 12:54 25 mg ONCE ONE Administration MDM - Dizziness MDM Narrative Medical decision making narrative: This patient comes in reporting sense of fullness in her head and face and yet does not have a headache. She does report vertigo symptoms with getting upright and moving around. She arrives here with normal vital signs except her blood pressure is elevated. CT scan of the head is obtained and shows no acute findings intracranially except for a complete opacification with fluid of the maxillary sinus. The patient had labs done at a clinic visit about a week ago and declined any further lab studies at this time. She received an oral dose of meclizine. Her symptoms may be more directly related to this sinusitis. Her neurologic exam is completely normal. She is okay to be discharged home. I did provide prescription for a Medrol Dosepak, Zofran, and Augmentin. I advised her also to use meclizine [id number]-jqzyycm as needed and directed. Lab Data Labs: Lab Results 07/17/24 Range/Units 12:02 Urine Color Yellow (Yellow) Urine Appearance Clear (Clear) Urine pH 6.0 (5.0-8.5) Ur Specific [place] 1.015 (1.000-1.030) Urine Protein Negative (Negative) Urine Glucose (UA) Negative (Negative) Urine Ketones Negative (Negative) Urine Blood Negative (Negative) Urine Nitrite Negative (Negative) Urine Bilirubin Negative (Negative) Urine Urobilinogen 0.2 (0.2-1.0) Ur Leukocyte Esterase Negative (Negative) Urine RBC 0-2 (0-2) Urine WBC 0-2 (0-5) Ur Squamous Epith Cells None (None-Few) Urine Bacteria None (None) Imaging Data CT scan - head: Radiologist's impression: 1. No acute intracranial abnormality. 2. Complete opacification of the left maxillary sinus with mild thickening of the surrounding guzman may represent chronic sinusitis. Discharge Plan Discharge Clinical Impression: Sinusitis, Vertigo Patient Disposition: Home, Self-Care Condition: Stable Additional Instructions: Take medications as prescribed and needed. Also consider using meclizine as needed and directed for vertigo symptoms. Follow up with MD return if worsening. Prescriptions: New ondansetron HCl 4 mg tablet 4 mg PO Q6H Qty: 20 0RF methylprednisolone [Medrol (Wally)] 4 mg tablets,dose pack See Rx Instructions .ROUTE .COMPLEX Qty: 21 0RF Rx Instructions: orally per package directions amoxicillin-pot clavulanate 875-125 mg tablet 1 tab PO BID Qty: 14 0RF No Action amlodipine 5 mg tablet 5 mg PO DAILY Qty: 90 3RF clopidogrel 75 mg tablet 75 mg PO DAILY Qty: 90 3RF quetiapine [Seroquel] 50 mg tablet 50 mg PO BID Qty: 14 0RF trazodone 50 mg tablet 50 mg PO QHS Qty: 14 0RF albuterol sulfate 90 mcg/actuation aero powdr breath act w/sensor 2 inh inhalation Q6H PRNQty: 1 0RF Arnuity Ellipta 200 mcg/actuation blister with device 1 inh inhalation Q24H Qty: 30 5RF Spiriva with HandiHaler 18 mcg capsule, w/inhalation device 1 cap inhalation QDAY Qty: 90 0RF Rx Instructions: puncture 1 cap using device; one dose = 2 inhalations Follow Up/Referrals: Beth Lancaster MD [Primary Care Provider] - Stand Alone [facility] Info Instructions
[2024-07-17] MEDS: MECLIZINE HCL 25 MG TABLET PO (13:01)
--- OUTSIDE RECORDS SUMMARY | 2024-07-17 13:39 | XMS_ITS | Clinical Summary ---
Author Organization [facility] Address [place], [place] [address] Care Team Providers Care Pump House Engineer Name Role Phone Akosua Rivas DO Primary Care Provider [phone] Allergies No known active allergies Medications Medication Sig Dispensed Refills Start Date End Date Status aspirin chewable 81 mg chewable tablet Take 81 mg by mouth once daily. 09/11/2020 Active albuterol HFA (PRO-AIR; VENTOLIN; PROVENTIL) 90 mcg/actuation inhalerIndications:Ob structive emphysema (HC) Inhale 2 Puffs by mouth 4 times daily if needed (shortness of breath/wheezing) . 1 Each 5 08/19/2021 Active lfvaoax-herz-xsezp-or eg-capryl 100 mg-150 mg- 50 mg-150 mg [...] Name Administration Dates Next Due COVID-19 vaccine ([employer] 30mcg/0.3mL) 12YO+ JEAN PIERRE-SUCROSE PF, MDV 01/29/2022 COVID-19 vaccine ([employer] 30mcg/0.3mL) P F, MDV 08/19/2021 Td (Age [...] Comments Blood Pressure 145/84 11/22/2022 7:54 AM SOLAR PROCESS ENGINEER Pulse 78 11/22/2022 7:54 AM SOLAR PROCESS ENGINEER Temperature 37 ??C (98.6 ??F) 04/02/2022 8:19 AM CDT Respiratory Rate 18 06/19/2019 8:34 AM CDT Oxygen Saturation 99% 11/22/2022 7:54 AM SOLAR PROCESS ENGINEER Inhaled Oxygen Concentration - - Weight 84.1 kg (185 lb 6.4 oz) 11/22/2022 7:54 A M SOLAR PROCESS ENGINEER Height 167.6 cm (5' 6) 11/22/2022 7:54 AM SOLAR PROCESS ENGINEER Body Mass Index 29.92 11/22/2022 7:54 AM SOLAR PROCESS ENGINEER Plan of Treatment Health Maintenance Due Date Last Done Comments Pneumococcal series for age 65+ (1 of 2 - PCV) 1954 Tdap 1959 Zoster (shingles) series for age 50+ (1 of 2) 1998 Tetanus booster 11/03/2012 11/03/2002 DEXA/DXA scan for age 65+ 2013 Medicare Wellness for age 65+ 07/10/2021, 03/21/2019, 10/24/2015 Fecal testing non-DNA (FIT,FOBT,iFOBT) for age 45-75 2021 2020, 09/20/2017, 11/25/2015 RSV vaccine for adults or (1 - 1-dose 75+ series) 2023 BMI (ht and wt on same day) for age 18+ 11/22/2023 11/22/2022, 05/24/2022, 06/19/2021, Additional history exists Depression screening for age 12+ 11/22/2023 11/22/2022, 08/26/2021, 08/19/2021, Additional history exists COVID-19 vaccine series ( season) 2024 01/29/2022, 08/19/2021, 01/03/2021, Additional history exists Influenza for age 65+ 06/03/2024 Lipids for age 45-75 07/09/2025 07/09/2020, 03/21/2019, 10/24/2015, Additional history exists Hepatitis C screening for ag e 18-79 Completed 07/09/2020 Procedures Procedure Name Priority Date/Time Associated Diagnosis Comments OCCULT BLOOD IFOBT STOOL Routine 2020 7:05 AM SOLAR PROCESS ENGINEER Screening for colorectal cancer ANTI HCV Routine 07/09/2020 10:28 AM CDT Encounter for hepatitis C screening test for low risk patient LIPID PANEL W REFLEX MEASURED LDL Routine 07/09/2020 10:28 AM CDT Screening cholesterol level from Last 3 Months or Most Recently Relevant to Health Maintenance Results * OCCULT BLOOD IFOBT STOOL (2020 7:05 AM SOLAR PROCESS ENGINEER) STOOL BLOOD ,IFOBT Negative Negative 09/24/2020 10:34 AM SOLAR PROCESS ENGINEER [facility] Stool STOOL SPECIMEN / Unknown Non-Blood / Unknown 2020 7:05 AM SOLAR PROCESS ENGINEER 09/24/2020 10:15 AM SOLAR PROCESS ENGINEER [facility] [address] [id number], [place] [phone] * (ABNORMAL) LIPID PANEL W REFLEX MEASURED LDL (07/09/2020 10:28 AM CDT) CHOLESTEROL,TOTAL 254(H) 100 - 199 mg/dL 07/09/2020 5:45 PM CDT [facility] TRIGLYCERIDES 117 <150 mg/dL 07/09/2020 5:45 PM CDT [facility] HDL CHOLESTEROL 95 >40 mg/dL 0 5:45 PM CDT [facility] NON-HDL CHOLESTEROL 159(H) <145 mg/dl 07/09/2020 5:45 PM CDT [facility] CHOL/HDL RATIO 2.67 <4.50 07/09/2020 5:45 PM CDT [facility] LDL CHOLESTEROL 136(H) <=130 mg/dL 07/09/2020 5:45 PM CDT [facility] PROVIDER ORDERED STATUS RANDOM 07/09/2020 5:45 PM CDT [facility] Blood BLOOD SPECIMEN / Unknown Venipuncture / Unknown 07/09/2020 10:28 AM CDT 07/09/2020 10:29 AM CDT [facility] [address] [place] [address], [place] * ANTI HCV (07/09/2020 10:28 AM CDT) HEPATITIS C ANTIBODY Non-React yajaira Non-React yajaiar 07/09/2020 6:06 PM CDT [facility] Comment:Antibodies to HCV no t detected; does not exclude the possibility of exposure to HCV. Blood BLOOD SPECIMEN / Unknown Venipuncture / Unknown 07/09/2020 10:28 AM CDT 07/09/2020 10:29 AM CDT [facility] [address] [place] [address], from Last 3 Months or Most Recently Relevant to Health Maintenance Care Teams Pump House Engineer Relationship Specialty Start Date End Date Akosua Rivas DO [address] [place] [address] PCP - General Family Practice 11/30/22
[2024-07-17] MEDS: ONDANSETRON ODT 4 MG TAB PO (14:15)
== END 2024-07-17 14:16 | disposition home or self-care (01) ==
PROVIDERS: Emergency Provider Emergency Medicine Emergency Medical Services; PCP Family Medicine
DX: R42 Dizziness and giddiness (principal); J32.9 Chronic sinusitis, unspecified
CPT/HCPCS: 70450; 81001; 99284; A9270

== ENCOUNTER 2024-10-18 12:10 | Outpatient (CLI) | payer MEDICARE, SELFPAY | END 2024-10-18 12:11 | disposition home or self-care (01) | PROVIDERS: PCP Family Medicine; Visit Provider Nurse Practitioner Family | DX: M25.472 Effusion, left ankle (principal) | CPT/HCPCS: 84550; 85651; 86140 ==

== ENCOUNTER 2025-03-19 08:15 | Emergency (ER) | payer MEDICARE, SELFPAY ==
--- OUTSIDE RECORDS SUMMARY | 2025-03-19 08:17 | XMS_ITS | Clinical Summary ---
Author Organization [facility] Address [facility] [place] [address] Care Team Providers Care Slitter And Rewinder Name Role Phone Akosua Rivas DO Primary Care Provider [phone] Allergies No known active allergies Medications aspirin chewable 81 mg chewable tablet Take 81 mg by mouth once daily. 09/11/2020 Active albuterol HFA (PRO-AIR; VENTOLIN; PROVENTIL) 90 mcg/actuation inhalerIndicatio ns:Obstructive emphysema (HC) Inhale 2 Puffs by mouth 4 times daily if needed (shortness of breath/wheez ing). 1 Each 5 08/19/2021 Active phyruwd-rpab-wvx rr-utgk-wahsrj 100 mg-150 mg- 50 mg-150 mg cap Take by mouth. 0 01/29/2022 Active amLODIPine (NORVASC) 5 mg tabletIndication s:HTN (hypertension) Take 1 Tablet (5 mg) by mouth once daily. 90 Tablet 3 08/27/2022 Active clopidogreL (PLAVIX) 75 mg tabletIndication s:Cerebrovascula r accident (CVA), unspecified mechanism (HC) Take 1 Tablet (75 mg) by mouth once daily. 90 Tablet 3 08/27/2022 Active fluticasone propionate (Flovent Diskus) 250 mcg/actuation inhalerIndicatio ns:Obstructive emphysema (HC) Inhale 1 Puff by mouth two times daily. 60 Each 03/04/2023 Active traZODone (DESYREL) 50 mg tabletIndication s:Insomnia, unspecified type TAKE 1 TO 2 TABLETS BY MOUTH AT BEDTIME FOR SLEEP 180 Tablet 09/13/2023 Active QUEtiapine (SEROQUEL) 50 mg tabletIndication s:Severe depression (HC),PTSD (post-traumatic stress disorder),Other bipolar disorder (HC),Dissociativ e episodes TAKE TWO TABLETS (100 MG) BY [...] (03/10/2007): Chronic SOB (shortness of breath) Immunizations Immunization Administration Dates Next Due COVID-19 vaccine ([employer] NTIntela 30mcg/0.3mL) 12YO+ JEAN PIERRE-SUCROSE PF, MDV 01/29/2022 COVID-19 vaccine ([employer] 30mcg/0.3mL) P F, MDV 08/19/2021 Td (Age [...] of Communication with Friends and Fami ly 0 01/29/2022 Financial Resource Strain Answer Date R ecorded [...] Housing in the Last Year 1 01/29/2022 Comments No Sex and Gender Information Value Date Recorded Sex Assigned at Not on file Legal Sex Female 7:18 AM COMMUTER TRAIN OPERATOR Gender Identity Not on file Sexual Orientation Not on file Obstetrics History Para Term AB IAB SAB Ectopic Multiple Livin g Live Births 3 1 Date Outcome GA Total Labor Labor/2nd/3rd Weight Sex Type Anes PTL Anju A1 A5 Name Clin Last Filed Vital Signs Vital Sign Reading Time Taken Comments Blood Pressure 145/84 11/22/2022 7:54 AM COMMUTER TRAIN OPERATOR Pulse 78 11/22/2022 7:54 AM COMMUTER TRAIN OPERATOR Temperature 37 C (98.6 F) 04/02/2022 8:19 AM CDT Respiratory Rate 18 06/19/2019 8:34 AM CDT Oxygen Saturation 99% 11/22/2022 7:54 AM COMMUTER TRAIN OPERATOR Inhaled Oxygen Concentration - - Weight 84.1 kg (185 lb 6.4 oz) 11/22/2022 7:54 A M COMMUTER TRAIN OPERATOR Height 167.6 cm (5' 6) 11/22/2022 7:54 AM COMMUTER TRAIN OPERATOR Body Mass Index 29.92 11/22/2022 7:54 AM COMMUTER TRAIN OPERATOR Plan of Treatment Health Maintenance Due Date Last Done Comments Tdap 1959 Pneumococcal series for age 50+ (1 of 2 - PCV) 1967 Zoster (shingles) series for age 50+ (1 of 2) 1998 Tetanus booster 11/03/2012 11/03/2002 DEXA/DXA scan for age 65+ 2013 Medicare Wellness for age 65+ 07/10/2021 07/09/2020, 03/21/2019, 10/24/2015 RSV vaccine for adults or (1 - 1-dose 75+ series) 2023 BMI (ht and wt on same day) for age 18+ 11/22/2023 11/22/2022, 05/24/2022, 06/19/2021, Additional history exists Depression screening for age 12+ 11/22/2023 11/22/2022, 08/26/2021, 08/19/2021, Additional history exists COVID-19 vaccine series ( season) 2024 01/29/2022, 08/19/2021, 01/03/2021, Additional history exists Influenza Vaccine (Season Ended) 2025 Hepatitis C screening for age 18-79 Completed 07/09/2020 Hepatitis B series for 19+ Aged Out N o longer eligible based on patient's age to complete this topic Procedures Procedure Name Priority Date/Time Associated Diagnosis Comments ANTI HCV Routine 07/09/2020 10:28 AM CDT Encounter for hepatitis C screening test for low risk patient from Last 3 Months or Most Recently Relevant to Health Maintenance Results * ANTI HCV (07/09/2020 10:28 AM CDT) HEPATITIS C ANTIBODY Non-React yajaira Non-React yajaira 07/09/2020 6:06 PM CDT [facility] Comment:Antibodies to HCV no t detected; does not exclude the possibility of exposure to HCV. Blood BLOOD SPECIMEN / Unknown Venipuncture / Unknown 07/09/2020 10:28 AM CDT 07/09/2020 10:29 AM CDT us [facility] Final Result [facility] [address] [place] [address], from Last 3 Months or Most Recently Relevant to Health Maintenance Insurance MEDICAID [facility] Care Teams Slitter And Rewinder Relationship Specialty Start Date End Date Akosua [place]ivas [place] [address] PCP - General Family Practice 11/30/22
[2025-03-19 08:27] VITALS: BP 177/86; PULSE 91; RESP 18; TEMP 37; O2SAT 94; BMI 23.6
--- NOTE | 2025-03-19 10:03 | ED.PSYCH ---
HPI - Psych General Date Seen: 03/19/25 Chief Complaint: Psychiatric Problem/Disorder Stated Complaint: mental health Time Seen by Provider: 03/19/25 08:31 Source: patient Mode of arrival: ambulatory Limitations: no limitations History of Present Illness HPI Narrative: Patient is a 74-year-old female presenting to the emergency department for psychiatric concerns. She states she has bipolar disorder, insomnia, PTSD, borderline personality disorder. She has been doing DBT for her borderline personality disorder she states it helps but she has also been on Seroquel and trazodone for long time she states helps her quite a bit. She was previously prescribed the medications by her former provider through the [facility] but has recently required to switch to [facility]. She has been unable to get her medications refilled through the [facility] as she was referred to psychiatry to get her medications refilled. She has been trying again and with the psychiatrist but has been unable to fill out required paperwork due to her computer breaking. Due to this she has been off her medications now for 6-7 months and states she feels like she is about to have a nervous breakdown. She states showed a passive thoughts of hurting herself but states she will not go through with these. When I asked her she needs inpatient treatment she states that this time she is not thinks he does but occasionally she will believe she should be in inpatient treatment. Denies fevers, chills, visual or auditory hallucinations, homicidal ideation. Related Data Home Medications ?Medication ?Instructions ?Recorded ?Confirmed mitragynine and PO BID 10/21/24 02/04/25 7-hydroxymytragynine (Kratom) Previous Rx's ?Medication ?Instructions ?Recorded albuterol sulfate 90 mcg/actuation 2 inh inhalation Q6H PRN #1 ea 01/04/24 breath activated powder inhaler,sensor fluticasone furoate 200 1 inh inhalation Q24H #30 ea 03/13/24 mcg/actuation blister powder for inhalation (Arnuity Ellipta) tiotropium bromide 18 mcg capsule 1 cap inhalation QDAY #90 06/14/24 with inhalation device (Spiriva inhalations with HandiHaler) quetiapine 50 mg tablet (Seroquel) 100 mg (2 x 50 mg) PO QHS #60 tabs 03/19/25 trazodone 50 mg tablet 50 mg PO QHS #30 tabs 03/19/25 Allergies Allergy/AdvReac Type Severity Reaction Status Date / Time No Known Drug Allergies Allergy Verified 03/19/25 08:25 Review of Systems Status of ROS: Reports: 10 or more systems reviewed and unremarkable except as noted in History and below [facility] Medical History Passive suicidal ideations ?R45.851 - Suicidal ideations (ICD-10) History of suicide attempt ?Z91.51 - Personal history of suicidal behavior (ICD-10) History of eating disorder ?Z86.59 - Personal history of other mental and behavioral disorders (ICD-10) Bipolar disorder ?F31.9 - Bipolar disorder, unspecified (ICD-10) Positive RINA (antinuclear antibody) ?R76.8 - Other specified abnormal immunological findings in serum (ICD-10) Pulmonary hypertension ?I27.20 - Pulmonary hypertension, unspecified (ICD-10) Mitral valve prolapse (2016) ?I34.1 - Nonrheumatic mitral (valve) prolapse (ICD-10) History of alcoholism ?F10.21 - Alcohol dependence, in remission (ICD-10) Lumbar back pain ?M54.50 - Low back pain, unspecified (ICD-10) Bipolar 2 disorder ?F31.81 - Bipolar II disorder (ICD-10) Cigarette smoker ?F17.210 - Nicotine dependence, cigarettes, uncomplicated (ICD-10) Anxiety ?F41.9 - Anxiety disorder, unspecified (ICD-10) Osteoarthritis (arthritis due to wear and tear of joints) ?M19.90 - Unspecified osteoarthritis, unspecified site (ICD-10) COPD (chronic obstructive pulmonary disease) ?J44.9 - Chronic obstructive pulmonary disease, unspecified (ICD-10) Hypertension, essential ?I10 - Essential (primary) hypertension (ICD-10) PTSD (post-traumatic stress disorder) ?F43.10 - Post-traumatic stress disorder, unspecified (ICD-10) Borderline personality disorder ?F60.3 - Borderline personality disorder (ICD-10) Pneumonia of both lower lobes (~2014) ?J18.9 - Pneumonia, unspecified organism (ICD-10) Surgical History History of tonsillectomy ?Z90.89 - Acquired absence of other organs (ICD-10) History of knee problem ?Z87.39 - Personal history of other diseases of the musculoskeletal system and connective tissue (ICD-10) History of appendectomy (~1981) ?Z90.49 - Acquired absence of other specified parts of digestive tract (ICD-10) History of hysterectomy (1984) ?Z90.710 - Acquired absence of both cervix and uterus (ICD-10) History of Achilles tendon repair (1982) ?Z98.890 - Other specified postprocedural states (ICD-10) History of laparoscopy (~1979) ?Z98.890 - Other specified postprocedural states (ICD-10) Family History Father Pacemaker Brother Pancreatic cancer, Onset Age: 63 Brother Lung cancer, Onset Age: 57 Sister Schizophrenia Autism Social History Narrative: Single, retired [employer], 1 son on [facility], patient is estranged from him Smokes 15 cigarettes a day, history of 25 pack years Rare alcohol use No illegal drug use What is your current living situation?: I presently have a place to live Problems where you live: no known problems In the past 12 months, utilities in danger of being shut off: no In past 12 months, lack of transportation kept you from medical appts, meetings, work, or getting things needed for daily living: no In the past 12 mos, have been you worried that your food would run out before you had money to buy more?: never true In the past 12 mos, the food you bought just didn't last and you didn't have money to buy more?: never true Smoking Status: Current every day smoker What tobacco products do you use: cigarettes Smoking packs per day: 0.5 Smoking cigarettes per day: 10.0 Do you use any of these nicotine containing products: None Second hand tobacco smoke exposure: No How often do you have a drink containing alcohol: never How often do you have six or more drinks on one occasion: Never AUDIT-C Alcohol total score: 0 Non-prescribed substance use: denies use Non-prescribed substance use details: edtom How often does anyone, including family, friends and others, physically hurt you: never How often does anyone, including family, friends and others, insult or talk down to you: sometimes How often does anyone, including family, friends and others, threaten you with harm: never How often does anyone, including family, friends and others, scream or curse at you: rarely service: No Health Related Social Needs: Other personal risk factors, not elsewhere classified (Z91.89) Exam Narrative: Exam Narrative: Const: Well-nourished, Well-developed, in no distress Eyes: PERRL, no conjunctival injection, and symmetrical lids HENT: Atraumatic external nose and ears. Moist mucous membranes. Neck: Symmetric, trachea midline, No thyromegaly. CVS: RRR, No murmurs or gallops. Peripheral pulses 2+ and equal in all extremities RESP: Unlabored respiratory effort. Clear to auscultation bilaterally. GI: Nontender/Nondistended, No rebound or guarding. MSK:Extremities w/o deformity, Normal Active ROM Skin: Warm, Dry. No rashes or lesions. Neuro: Normal Muscle tone, No focal neurological deficits. Psych: Awake, Alert, & Oriented x3. Appropriate mood and affect. Const: Vital Signs, click to edit/add: Vital Signs - 24 hr 03/19/25 08:27 Temperature 98.6 F Pulse Rate [Left P ulse Oximeter] 91 Respiratory Rate 18 Blood Pressure [Ri ght Upper Arm] 177/86 H Pulse Oximetry 94 Oxygen Delivery Me thod Room Air Course Vital Signs Vital signs: Initial Vital Signs Temperature 98.6 F 03/19/25 08:27 Temperature Source Temporal Artery Scan 03/19/25 08:27 Pulse Rate 91 03/19/25 08:27 Respiratory Rate 18 03/19/25 08:27 Blood Pressure 177/86 H 03/19/25 08:27 Blood Pressure Mean 116 H 03/19/25 08:27 Blood Pressure Position Sitting 03/19/25 08:27 Pulse Oximetry 94 03/19/25 08:27 Oxygen Delivery Method Room Air 03/19/25 08:27 Vital Signs Temperature 98.6 F 03/19/25 08:27 Pulse Rate 91 03/19/25 08:27 Respiratory Rate 18 03/19/25 08:27 Blood Pressure 177/86 H 03/19/25 08:27 Pulse Oximetry 94 03/19/25 08:27 Oxygen Delivery Method Room Air 03/19/25 08:27 Temperature 98.6 F 03/19/25 08:27 Pulse Rate 91 03/19/25 08:27 Respiratory Rate 18 03/19/25 08:27 Blood Pressure 177/86 H 03/19/25 08:27 Pulse Oximetry 94 03/19/25 08:27 Oxygen Delivery Method Room Air 03/19/25 08:27 MDM - Psych MDM Narrative Medical decision making narrative: Patient is a 74-year-old female presenting to emergency department for mental health evaluation. Based on my exam with her I do not believe she needs inpatient treatment at this time but I will have [facility] evaluate her to make sure they see no other concerns. I do not believe lab work is necessary at this time. I spoke to our on-call psychiatric nurse practitioner, Inocente Schneider, who is also the provider she has been trying to see. I asked him about starting her Seroquel and trazodone again. He states it is reasonable to restart her on 100 mg 0 Prolene 50 mg trazodone nightly. He states he will follow-up with her outpatient. Discharge Plan Discharge Clinical Impression: Borderline personality disorder, Anxiety, Bipolar 2 disorder Patient Disposition: Home, Self-Care Condition: Stable Additional Instructions: Follow up appointment with Inocente Schneider is scheduled on March 21 with a 10am appointment time. If you have any questions or need to reschedule, please call [phone]. [facility] [place] [address] I will restart your Seroquel and trazodone. Return for new or worsening symptoms Prescriptions: New quetiapine [Seroquel] 50 mg tablet 100 mg PO QHS Qty: 60 0RF trazodone 50 mg tablet 50 mg PO QHS Qty: 30 0RF No Action mitragynine and 7-hydroxymytragynine (Kratom) PO BID Patient Comments: reports she takes this for chronic pain albuterol sulfate 90 mcg/actuation aero powdr breath act w/sensor 2 inh inhalation Q6H PRNQty: 1 0RF Arnuity Ellipta 200 mcg/actuation blister with device 1 inh inhalation Q24H Qty: 30 5RF Spiriva with HandiHaler 18 mcg capsule, w/inhalation device 1 cap inhalation QDAY Qty: 90 0RF Rx Instructions: puncture 1 cap using device; one dose = 2 inhalations Follow Up/Referrals: Beth Lancaster MD [Primary Care Provider, Family Practice] Stand Alone Forms: [employer] Info Instructions
== END 2025-03-19 10:54 | disposition home or self-care (01) ==
PROVIDERS: Emergency Provider Student in an Organized Health Care Education/Training Program; PCP Family Medicine
DX: F60.3 Borderline personality disorder (principal); F41.9 Anxiety disorder, unspecified; F31.81 Bipolar II disorder
CPT/HCPCS: 99283; 99284; Q3014